=== PATIENT | male | born 1990 | race Caucasian/White ===

== ENCOUNTER → 2017-01-03 | Day surgery (SDC) | payer OTHER ==
[~2017-01-03] VITALS: Ht 170.2 cm; Wt 61.5 kg
[2017-01-03] VITALS (8 sets, daily range): BP systolic 127–146; BP diastolic 74–95; PULSE 47–94; RESP 15–22; O2SAT 98–100
[~2017-01-03] MED LIST: ALBU8.5H2 INHALATION; Bacitracin 50,000 unit Inj IRRIGATION ONE; CLOB15CR2 TP; CeFAZolin 2 Gm/50 mL D5W Duplex Bag IV ONE; CeFAZolin Inj 2 GM in IV Premix 1 EACH IV ONE; EPHEDrine Sulfate 50 mg/mL Inj IVPUSH PRN; HYDROcodone-APAP 5-325 mg Tablet PO PRN; HYDROmorphone 1 mg/mL Inj IVPUSH PRN; KEN25CR EXT; Ketorolac 15 mg/mL Inj IVPUSH ONE; Lactated Ringer's 1,000 ML IV ONE; Lactated Ringer's 1,000 ML IV SCH; Lactated Ringer's 500 ML IV PRN; MetoCLOpramide 5 mg/mL 2 mL Inj IVPUSH PRN; Ondansetron 2 mg/mL 2 mL Inj IVPUSH PRN; Phenylephrine 10,000 mCg/mL Inj IVPUSH PRN; Ropivacaine-PF 0.5% 30 mL Inj INFILTRATE ONE; fentaNYL-PF 50 mCg/mL 2 mL Inj IVPUSH PRN
--- NOTE | 2017-01-03 15:38 | PCM.ORTHOP ---
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 Without the qualified delinquent tax collection assistant being present, it would have extended the operative procedure and made the procedure technically more difficult to perform. INDICATIONS: The patient is a Toy Almanzar who is a 26-year-old male patient with a prolonged history of right knee giving way. The patient has had continued episodes of instability. The patient has restored their range of motion and is now brought to the operating room for ACL reconstruction, possible partial medial and lateral meniscectomy versus medial and lateral meniscal repair, chondroplasty and debridement. The risks, benefits, and alternatives of surgery were discussed with the patient. The risks included but were not limited to infection, bleeding, damage to vessels and nerves, loss of motion, continued pain, re-tear of the meniscus, deep venous thrombosis, and complications due to anesthesia including nerve injury, myocardial infarction, stroke, , etc. The patient stated understanding of the nature of the surgical procedure and gave written and verbal consent to proceed. We have discussed auto versus allograft and he has elected for allograft despite increased failure rate and risk of infection PROCEDURE: The patient was brought to the operating room and placed supine on the operating room table. General anesthesia was induced and an adductor canal block was placed. The right lower extremity was examined under anesthesia. Range of motion was 0 degrees of hyperextension to 135 degrees of flexion. There was no varus or valgus or posterolateral instability. The patient had no instability to varus or valgus stress at 0 or 30 degrees. The patient had a 2+ Ty and drawer with a positive pivot shift. The right lower extremity was then prepped and draped in the usual fashion. A tourniquet was placed proximally on the thigh over a bias stockinette. A standard anterolateral parapatellar stab wound was created. The knee joint was entered with a blunt-tipped obturator, followed by the 30-degree video arthroscope. An anteromedial portal was established under arthroscopic control. A routine arthroscopic survey was performed. The suprapatellar pouch was unremarkable. The undersurface of the patella was well-preserved. The patella appeared to track centrally within the trochlear groove. The medial and lateral gutters were inspected and there was no loose body seen. There was no hypertrophied plica. The popliteal hiatus was entered and was unremarkable. The lateral compartment was entered. The articular surfaces of the lateral femoral condyle was largely well maintained, there was grade 2 chondromalacia. There was minimal chondromalacia adjacent to the notch. There was no chondromalacia along the central aspect of the weight bearing lateral tibial plateau. The lateral meniscus demonstrated a body and anterior horn degenerative tear which was debrided and resected with a shaver and biter. The intercondylar notch was visualized. The anterior cruciate ligament was torn from it's femoral origin. There was an empty lateral wall. Posteromedially there was no loose body seen. The posterior cruciate ligament was visualized and appeared intact. Moderate synovitis was noted anteriorly in the medial and lateral compartment and debrided with a shaver. The medial compartment was entered. The articular surfaces of the medial femoral condyle and medial tibial plateau were visualized. There was grade 2/3 chondromalacia noted on the medial femoral condyle, and no chondromalacia noted on the medial tibial plateau. The medial meniscus body and posterior horn was visualized and appeared intact and was stable to probing. The posterior medial meniscal root was avulsed from the tibia. A crescent suture passer was used to pass luggage tag stitch through the meniscus and a drill hole through the tibia was performed and a suture anchor was used to preserve the tension of the stitch into the bone. Moderate synovitis was noted anteriorly in the medial and lateral compartment and debrided with a shaver. Attention was turned to reconstruction of the anterior cruciate ligament. Following exsanguination with an Esmarch bandage the tourniquet was inflated to 250 mm of mercury. Using a motorized shaver a notchplasty was performed, exposing the lateral wall and roof of the notch, identifying the [id number] position. The stump of the anterior cruciate ligament was debrided. An Arthrex guide was placed intra- articularly between the tibial spines in line with the anterior horn of the lateral meniscus. A Alexis wire was then inserted into the knee through a 2 cm incision made over the proximal medial tibia. The incision was deepened through the subcutaneous tissue with subperiosteal dissection achieved. Bleeding points were coagulated with the Bovie electrocautery. A fresh frozen tibialis allograft was opened and prepared at the back table, accommodating a 8.5 mm graft on the femoral side and 8.5 mm graft on the tibial side. Tibial drilling was then carried out first with a 5 mm followed by a 9 mm cylindrical reamer and a 9.5 dilator with the guide set at 55 degrees. The Beath pin was drilled out the femoral cortex and skin. The femoral tunnel was then created, with an Arthrex flipcutter. Depth-gauging confirmed a tunnel length of 40 mm. An Arthrex EndoButton was selected. The graft was inserted intra- articularly and the EndoButton was deployed. The graft was cycled for 17 cycles with 25 pounds of force to pre-load the graft. Tibial fixation was carried out using a 8-10 PEEK Intra-Fix in 10 degrees of flexion with a posterior drawer. At the completion of surgery the patient had a firm stable Ty. The patient had a 0 firm Ty and a negative pivot shift. There was no evidence for any roof or lateral wall impingement. The tourniquet was deflated. The knee was irrigated with two liters of lactated Ringer's solution. Excess fluid was drained. The tibial wounds were then copiously irrigated with bacitracin solution and closed in layers with #0, #2-0 and #3-0 Vicryl. The skin was reapproximated with #4-0 Monocryl. The knee was injected with 20 cc of 0.5% plain ropivacaine and 4 mg of Duramorph. A dry sterile dressing was applied, followed by a bulky bandage and JIM stocking. A postoperative TROM brace was applied locked in full extension. The patient was awakened in the Operating Room and transported to the Recovery Room in satisfactory condition. The patient appeared to tolerate the procedure well. At the completion of surgery the patient had soft compartments, palpable pulses, and brisk capillary refill. There were no complications noted. Please keep dressing clean dry and intact. Do not remove dressing until follow- up in clinic. If the dressing become soaked, you may remove the outer gauze and placed Band-Aids on the wounds. You may not weight-bear, keep brace on at all times. Do Not Bend Your Knee. You may place a pillow under your heel and NOT your knee. You will follow up in clinic in 10-14 days for suture removal, and placement of new Steri-Strips. You will follow-up with me in clinic, and we will start physical therapy. You will follow-up with me every 6 weeks while you progress in your rehab and will be released once cleared by PT around 9-12 months. Please see me prior to full release. Please keep the affected extremity elevated when possible. You will take antibiotics 4 times daily for 3 days. You may use ice and/or heat as needed for comfort. (preferably ice during the first 48-72 hours)Please feel free to call with any further questions, comments, and/or concerns. You'll continue your eczema medications after your incision has healed. 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 We discussed possible increased risk of infection. Grafts, Implants: Implants-See Implant Record Complications There were no periprocedural complications identified. Condition Stable Anesthetic Administered: GA Catheters: None Output, Estimated Blood Loss: 5 Blood Admin during surgery: No Surgical Cast or Splint: Other Surgical Specimen Removed: No Specimen sent to Pathology: No copies to: Josemanuel Heredia MD, Christopher L MD Jan 03, 2017 15:38
--- NOTE | 2017-01-03 16:35 | PCM.HPANE ---
Patient Data Date of Service: Jan 03, 2017 Surgeon Admitting Provider: Attending Provider:Josemanuel Ybarra MD Primary Care Physician:Nakul Lopez MD Other Provider:Vladimir Gtz Anesthesia Reason for Visit Right Acl Tear Ht/WT & BMI Height (Feet): 5 Height (Inches): 7 Weight (Kilograms): 61.5 Body Mass Index 21.00 Allergies Coded Allergies: No Known Drug Allergies (Verified Allergy, Unknown, 01/03/17) Uncoded Allergies: PEANUTS (Allergy, Severe, anaphylaxis, 12/26/16) Past Anesthesia History Anesthesia History: Denies:: Abnormal Airway, Anesthesia Reactions, Difficult Intubation, Fam Anesthesia Reaction Diabetes History Hx Diabetes?: No MRSA MRSA: No Medications Hypertension Medication: No Home Meds Incl Beta Matias: No Reported Medications Albuterol HFA (Proair HFA)8.5 Gm Hfa.aer.ad2 Puffs INHALATION Q4H PRN For Shortness of Breath #1 INHALER 12/27/16 Triamcinolone Acet (Triamcinolone Acetonide Cream)1 Applic/0.25 Gm Cr1 Applic EXT BID #60 GM Ref 0 12/27/16 Clobetasol Propionate 15 Gm Cream..g.15 Gm TP BID PRN skin irritation 12/27/16 Discontinued Reported Medications Hydrocort/Pramox-Expunged, Do Not Renew! 28.4 Gm Oint...g.1 Applic TP PRN 04/06/13 TRIAMCINOLONE ACET-Expunged Drug, Do Not Gus (KENALOG-Expunged Drug, Do Not Renew!)1 Applic/0.25 Gm Oint1 Applic TOP PRN 04/06/13 ALBUTEROL-Expunged Drug, Do Not Renew! (Proair HFA-Expunged Drug, Do Not Renew!) 1 Pkg Pkg2 Puffs INH PRN 04/06/13 Cetirizine-Expunged Drug, Do Not Renew! 10 Mg [id number] Mg PO PRN 04/06/13 Discontinued Scripts Hmoeq-Sgmnay-Xqbvbxmd Drug, Do Not Renew! (Symbicort 160/4.5mcg-Expunged Drug, Do Not R)1 Puff Inha2 Puff INH BID #120 INH PRIME WITH 1 PUMP PRIOR TO INITIAL USE. *SHAKE WELL* RINSE MOUTH AFTER EACH USE* Prov:Orgul,Onder MD 04/08/13 PredniSONE-Expunged Drug, Do Not Renew! 10 Mg Tab10 Mg PO UD #30 40 MG DAILY X 3 DAYS, THEN 20 MG DAILY X 3 DAYS, THEN 10 MG DAILY X 3 DAYS, THEN 5 MG DAILY X 3 DAYS, THEN STOP. TAKE WITH FOOD. Prov:Sonja Donaldson MD 04/08/13 Levofloxacin-Expunged Drug, Do Not Renew! (Levaquin-Expunged Drug, Do Not Renew! )500 Mg [id number] Mg PO DAILYAC #5 TAB Prov:Sonja Donaldson MD 04/08/13 Albuterol/Ipratropium (DuoNEB Nebule)3 Ml Nebu3 Ml NEB Q4 10 Days Prov:Sonja Donaldson MD 04/08/13 Oseltamivir-Expunged Drug, Do Not Renew! (Tamiflu-Expunged Drug, Do Not Renew!) 75 Mg [id number] Mg PO BID #6 Prov:Sonja Donaldson MD 04/08/13 History History of ENT Problems?: No HEENT History: Positive for:: Cataracts (right eye) Sinus Problem (allergies) Denies:: Abnormal Airway Difficult Intubation Dysphagia Glaucoma Hearing Problem TMJ Denture Type: None Teeth Condition: Within Normal Limits Hx of Heart Problems?: No Cardiovascular History: Denies:: AICD Abdominal Aortic Aneurism Atrial Fibrillation Congestive Heart Failure Heart Murmur Hypertension Irregular Heartbeat Pacemaker Hx of Respiratory Problem?: Yes Respiratory History: Positive for:: Asthma (since childhood) Pneumonia (last three years ago) Use of Inhalers / NEBS Denies:: COPD Dyspnea Emphysema Hemoptysis Oxygen Administration Tuberculosis Use of C-PAP Machine Other History/Comment Mild persistent asthma Hx Neurologic Problems?: No Neurological History: Denies:: CVA Headaches Multiple Sclerosis Parkinson's Disease Seizures TIA Hx of GI Problems?: No Gastrointestinal History: Denies:: Gastroesphageal Reflux Liver Disease Hx of Problems?: No Genitourinary History: Denies:: Kidney Stones Urinary Tract Infection Male Hx: Denies:: Prostate Problems Scrotal Mass Testicular Surgery Skin History: Positive for:: History Skin Disorders? (eczema- dr ybarra) Denies:: Pressure Ulcers Other History/Comment Eczema, diffuse Hx Musculoskeletal Problems?: Yes Musculoskeletal History: Positive for:: Musculoskeletal Trauma (right knee acl tear current admission problem) Denies:: Back Injury Degenerative Joint Fibromyalgia Joint Replacement Myasthenia Gravis Osteoarthritis Rheumatoid Arthritis Systemic Lupus Hx of Psycho/Social Problems?: No Hx Surgeries?: Yes (cataract) Hx Any Other Health Problems?: Yes Other History: Positive for:: Hospitalization (anaphylaxsis from peanuts,) Denies:: Cancer Thyroid Disease History Blood Transfusions: Positive for:: Accept Blood Products? Denies:: Blood Transfuse Reaction Blood Transfusions Hx Diabetes: No Hx Alcohol Use: YesAlcoholic Drinks Per Day: two drinks weeklyHx Substance Use : NoHave You Smoked inLast 12 mo: No Stop/Bang S-Snoring: Do You Snore Loudly: No T-Tired: feel tired, fatigued: No O-Obsered: Observed not breath: No P-Blood Pressure: treated: No B- Body Mass Index > 35 kg/m2: No A- Age over 50: No N- Neck Large Circumference: No G- Gender Male: Yes VÍCTOR Total Score: 1 VÍCTOR Risk Assessment: Low Risk, <3 Yes Risk Assessment Category Category 1A: Patient has history of documented sleep apnea, and HAS NOT received any narcotic, sedative or anesthesia administration during this stay. Category 1B: Patient has history of documented sleep apnea, and HAS received any narcotic , sedative or anesthesia administration during this stay Category 2: Patient has SUSPECTED Obstructive Sleep Apnea, and HAS received any narcotic , sedative or anesthesia administration during this stay. Category 3: Patient has SUSPECTED Obstructive Sleep Apnea and HAS NOT received narcotic, sedative or anesthesia administration during this stay. Category 4: Outpatient in Procedural Areas with known sleep apnea or who screen positive for High Risk via the STOP/BANG questionnaire. Exam Exam Vital Signs Vital Signs Date Time Temp Pulse Resp B/P Pulse Ox O2 Delivery O2 Flow Rate FiO2 01/03/17 13:30 36.6 47 16 127/75 98 Room Air General Appearance: Alert, Oriented X3, Cooperative, No Acute Distress HEENT/AIRWAY: MP 2 Lungs: Clear to Auscultation, Normal Air Movement Heart: Exam Unremarkable, Regular Rate/Rhythm, No Murmurs/Rubs/Gallops Meds/Labs/Diagnostics Admission Meds Current Medications Cefazolin Sodium/ Dextrose 2 gm/ Premix 50 ml @ 100 mls/hr PREOP ONCE IV Last administered on 01/03/17t 16:00; Start 01/03/17 at 06:00; Stop 01/03/17 at 06:29; Status DC Lactated Ringer's (Lr) 1,000 ml @ ud STK-MED ONCE IV Last administered on 01/03t 13:30; Start 01/03/17 at 13:30; Stop 01/03/17 at 13:47; Status DC Plan Impression Patient chart reviewed, patient interviewed and anesthestic plan with risks, benefits, and alternatives discussed, and informed consent obtained. NPO per Anesth. Guidelines: Yes ASA Physical Status: ASA2 Mod Systemic Disease Anesthetic Plan: GA, Regional Block Bene/Risks/Altern/Consents: Yes HP Complete Prior to Induction: Yes Erasmo Ford MD Jan 03, 2017 16:35
--- NOTE | 2017-01-03 19:13 | PCM.ANEP1 ---
Post Anesthesia PACU Phase 1 Assessment Date of Service: Jan 03, 2017 Vital Signs Vital Signs Date Time Temp Pulse Resp B/P Pulse Ox O2 Delivery O2 Flow Rate FiO2 01/03/17 19:10 86 17 136/95 100 Simple Mask 8 01/03/17 19:04 36.8 93 18 146/82 100 Simple Mask 8 01/03/17 13:30 36.6 47 16 127/75 98 Room Air Anesthetic Administered: GA, Regional Block Level of Alertness: Awake, talking Pain: Yes Pain Scale Score: 5 Nausea or Vomiting: No CV Function & Hydration Stable: Yes Airway Device: Oxygen Delivery: Nasal Cannula Lungs: Clear to Auscultation, Normal Air Movement PACU Phase 2 Assessment Complications: No Follow up Care: No Patient Instructions Provided: N/A Erasmo Ford MD Jan 03, 2017 19:13
== END | disposition home or self-care (01) ==
LOC: SAS 13:00
PROVIDERS: ATTEND Orthopaedic Surgery
DX: S83.511A Sprain of anterior cruciate ligament of right knee, initial encounter (principal); S83.281A Other tear of lateral meniscus, current injury, right knee, initial encounter; S83.241A Other tear of medial meniscus, current injury, right knee, initial encounter; Y93.55 Activity, bike riding; M94.261 Chondromalacia, right knee; M65.861 Other synovitis and tenosynovitis, right lower leg
CPT/HCPCS: 29881; 29888; 76942; C1713; C1762; J0690; J1885; J2795; J7120